=== PATIENT | female | born 1985 | race Two or more races ===

== ENCOUNTER → 2025-10-07 14:21 | Outpatient (REF) | payer OTHER, SELFPAY | LOC: HWRAD 14:21 | PROVIDERS: ATTENDING PHYSICIAN Student in an Organized Health Care Education/Training Program; FAMILY PHYSICIAN Family Medicine | DX: N92.0 Excessive and frequent menstruation with regular cycle (principal) | CPT/HCPCS: 76830; 76856 ==

== ENCOUNTER 2025-10-13 10:37 | Emergency (ER) | payer OTHER, SELFPAY ==
[2025-10-13 10:47] VITALS: BP 159/108
[2025-10-13 11:05] VITALS: BMI 29.9
[2025-10-13 11:10] VITALS: BP 139/88
[2025-10-13 11:36] LABS: Hematocrit 30.9 % (37.0-47.0); Hemoglobin 10.2 g/dL (12.0-16.0); Mean Corp Hgb Conc. 33.0 g/dL (33.0-37.0); Mean Corpuscular Volume 86.6 fL (81.0-99.0); Nucleated Red Blood Cells % 0 %; Platelet Count 238 10^3/uL (130-400); Red Cell Dist. Width 13.5 % (11.5-14.5)
--- NOTE | 2025-10-13 11:42 | ED.GENMED ---
History of Present Illness
General
Chief Complaint: Vaginal Bleeding
Source: patient
Exam Limitations: none
Time Seen by Provider: 10/13/25 11:09
Nursing documentation reviewed up to this point in time: agreed with
History of Present Illness
History of Present Illness:
39 yr old female presents to the ER today for vaginal bleeding. Patient has additional vaginal bleeding since September 11. She is followed by [facility]. She completed a course of tranexamic acid and on Sunday #13 4 days
ago completed a 10-day course of Provera prescribed by Dr. Reid. For the past 2 d her bleeding has increased . She has been going through a heavy maxi pad every 2 hours. She has some cramping today but did take Motrin which has relieved her
symptoms. She did was little dizzy. She had a pelvic ultrasound on October 07 which showed that the endometrial stripe is thickened measuring 15 mm and she has a cyst and small uterine fibroids. She reports she is scheduled for endometrial
biopsy in November.
Phy Exam
General Physical Exam
General Presentation: no apparent distress
General age: appears stated age
General Skin: warm and dry
General Habitus: normal
General Mental: alert
General Hydration: appears well hydrated
Gastrointestinal Exam
Gastrointestinal Exam: non tender and soft
Genitourinary Exam Female
Exam Female: other (+ blood visible from OS no clotting )
Neurological Exam
Neurological Exam: alert and oriented x3
Musculoskeletal Exam
Musculoskeletal Exam: full ROM
Skin Exam
Skin Exam: normal color and warm/dry
Psychiatric Exam
Psychiatric Exam: normal mood/affect
Course
Orders/Labs/Results
Orders:
Orders
10/13/25 11:19
Test Result ONCE
10/13/25 11:21
Type And Crossmatch [Type+Screen] Urgent
Complete Blood Count/With Diff Urgent
Comprehensive Metabolic Panel Urgent
HCG, Serum Qualitative Screen Urgent
Abnormal Lab Results
10/13/25
11:21
RBC 3.57 L 10^6/uL
(4.20-5.40)
Hgb 10.2 L g/dL
(12.0-16.0)
Hct 30.9 L %
(37.0-47.0)
MPV 13.4 H fL
(7.4-10.4)
Chloride 108 H mmol/L
(98-107)
Total Protein 6.1 L g/dl
(6.3-8.2)
10/13/25 11:21
10/13/25 11:21
Vital Signs
Initial and Last Documented VS:
Initial Vital Signs
Pulse Resp BP Pulse Ox
98 16 159/108 98
10/13/25 10:47 10/13/25 10:47 10/13/25 10:47 10/13/25 10:47
Last Documented Vital Signs
Pulse Resp BP Pulse Ox
62 16 130/87 100
10/13/25 12:00 10/13/25 11:10 10/13/25 12:00 10/13/25 12:00
MDM/Problems Addressed
MDM/Problems Addressed:
As documented patient is a 39-year-old female who presents to the ER complaining of vaginal bleeding. She has been having heavy vaginal bleeding since mid August. She is seen by close to remove catheter. She tried TXA and also completed a 10-day
course of Provera 4 days ago. She will be prescribed. Past 2 days. Hemoglobin is 10.2 in 2020 during her . On exam she has fallen completely off venetoclax along with hemorrhage. She is stabl.
case reviewed with WEIGHT COUNT OPERATOR on-call Dr. House who does recommend patient to be started on until seen and evaluated for her hysteroscopy and uterine biopsy. Return precautions given.
*Pulse Oximetry
SaO2: 98
Oxygen Mode of Delivery: Room air
Patient hypoxic: no
*Critical Care Note
Total Time (30-74mins, 75-104mins- exclusive of procedures): Not Applicable
Data Reviewed
Review of Other/Old Records Reveals: Labs and Radiology Studies
Patient Management
Discussion with other providers: Leather Lacer (DR Lacy BUCIO )
ED Attending Note
-
Portions of this chart may have been created with voice recognition software.� Occasional wrong word or��sound alike� substitutions may have occurred due to the inherent limitations of voice recognition software.
Discharge Plan
Departure
Patient Disposition: Home (Routine Discharge)
Date of Disposition: 10/13/25
Time of Disposition: 13:03
Patient with high blood pressure during this ER visit?: Yes
Condition: Fair
Covid-19: Not Applicable
Discharge Problem:
Vaginal bleeding
Instructions: Heavy Periods (DC), BLOOD PRESSURE
Prescriptions:
New
norethindrone-e.estradiol-iron [ FE .5/30 (28)] 1.5 mg-30 mcg (21)/75 mg (7) tablet
1 tab PO DAILY Qty: 84 0RF
No Action
acetaminophen 325 MG tablet
650 mg PO Q4HPRN PRN (Reason: mild pain) 0RF
albuterol sulfate 1 PUFF HFA aerosol inhaler
2 puff inhalation R Q4HPRN PRN (Reason: wheezing) 0RF
multivitamin Tablet
1 tab PO DAILY
cholecalciferol (vitamin D3) [Vitamin D3] 25 mcg (1,000 unit) Tablet
25 mcg PO DAILY
Referrals:
Ghazal Kuhn DO [Active, Gynecology]
Basim Samuel DO [Family Provider, Family Practice]
Activity Restrictions/Additional Instructions:
As discussed a prescription for oral contraceptive was sent to your pharmacy to further regulate bleeding. Start tonight. Also as discussed the last 7 tablets in the packet or iron please take these as directed. Follow-up with WEIGHT COUNT OPERATOR return if
any worsening of symptoms.
Interventions
Interventions:
*Risk Screen - Suicide Last Done: 10/13/25 10:47
*General Assessment Last Done: 10/13/25 11:08
*Neglect/Abuse Screening Last Done: 10/13/25 10:47
*ED- Fall Risk Assessment Last Done: 10/13/25 11:08
*ED COVID-19 Vaccine History Last Done: 10/13/25 11:08
*ED Influenza Vaccine History Last Done: 10/13/25 11:08
ED-Female Genitourinary Assessment Last Done: 10/13/25 11:59
Discharge Date and Time
Print Language: ROMANIAN
[2025-10-13 11:48] LABS: ALT (SGPT) 26 U/L (0-35); AST (SGOT) 24 U/L (14-36); Albumin 4.0 g/dl (3.5-5.0); Alkaline Phosphatase 56 U/L (38-126); Blood Urea Nitrogen 11 mg/dl (7-17); Calcium 9.1 mg/dl (8.4-10.2); Carbon Dioxide 24 mmol/L (22-30); Chloride 108 mmol/L (98-107); Estimated Creatinine Clearance 122 ml/min; Glucose 86 mg/dl (70-99); Potassium 4.0 mmol/L (3.5-5.1); Sodium 136 mmol/L (135-145); Total Protein 6.1 g/dl (6.3-8.2); eGFR > 60.00
[2025-10-13 12:00] VITALS: BP 130/87
[2025-10-13 12:00] LABS: HCG, Serum Qualitative Screen Negative
[2025-10-13 13:00] VITALS: BP 130/80
== END 2025-10-13 13:23 | disposition home or self-care (01) ==
LOC: EMR 10:37
PROVIDERS: Nurse Practitioner; EMERGENCY PHYSICIAN Emergency Medicine; FAMILY PHYSICIAN Family Medicine
DX: N93.9 Abnormal uterine and vaginal bleeding, unspecified (principal); D25.9 Leiomyoma of uterus, unspecified; R93.89 Abnormal findings on diagnostic imaging of other specified body structures
CPT/HCPCS: 99283; 80053; 84703; 85025; 86850; 86900; 86901